=== PATIENT | male | born 1980 | race Caucasian/White ===

== ENCOUNTER 2022-01-14 17:51 | Emergency (ER) | payer OTHER ==
[~2022-01-14] VITALS: Ht 162.6 cm; Wt 68.0 kg
[2022-01-14] MEDS ORDERED: ULTRACET PO (20:50)
== END 2022-01-14 20:56 | disposition home or self-care (01) ==
LOC: ER 17:51
DX: S29.9XXA Unspecified injury of thorax, initial encounter (principal); S21.90XA Unspecified open wound of unspecified part of thorax, initial encounter; W19.XXXA Unspecified fall, initial encounter; Y93.9 Activity, unspecified; Y92.9 Unspecified place or not applicable; R07.9 Chest pain, unspecified